=== PATIENT | male | born 1950 | race Caucasian/White ===

== ENCOUNTER 2017-03-19 06:03 | Day surgery (SDC) | payer MEDICARE, OTHER ==
[2017-03-19] VITALS (8 sets, daily range): BP systolic 109–151; BP diastolic 57–95; PULSE 69–87; RESP 16–20; TEMP 97.6–97.7; O2SAT 93–97
[~2017-03-19] VITALS: Ht 185.4 cm; Wt 85.0 kg
[2017-03-19] MEDS ORDERED: SODIUM CHLOR 0.9% 1000 ML IV SCH (07:00)
[2017-03-19] MEDS ORDERED: MIDAZOLAM HCL 2 MG/2 ML VIAL ONE (07:43)
[2017-03-19] MEDS ORDERED: LIDOCAINE 1%/EPINEPHrine 1:100,000 SOLN 20 ML VIAL ONE (07:49)
--- NOTE | 2017-03-19 10:01 | RADRPT ---
EXAM DATE/TIME: 03/19/2017 08:00 [place] COMPARISON: No previous studies available for comparison. INDICATIONS : No history of prior malignancies with newly diagnosed hepatic mass. SEDATION TIME: 30 minutes BIOPSY SITE: liver MEDICATION(S): 1.) 2 mg midazolam (Versed) IV 2.) 100 mcg fentanyl (Sublimaze) IV DEVICE(S): 1.) 18 gauge Dominguez blunt needle 2.) 20 gauge Temno core biopsy needle MEDICAL HISTORY : Hypertension. SURGICAL HISTORY : None. ENCOUNTER: Initial ACUITY: 1 day PAIN SCORE: 0/10 LOCATION: upper quadrant A total of ? core specimen(s) were obtained and sent to the laboratory for pathologic evaluation. PROCEDURE: 1. CT guided liver biopsy. 2. Conscious sedation with continuous EKG and oximetry monitoring. 3. EKG and oximetry remained stable throughout the procedure. Prior to the procedure informed consent was obtained. Any appropriate prior imaging studies were rev iewed. Using automated exposure control and adjustment of the mA and/or kV according to patient size, radiat ion dose was kept as low as reasonably achievable to obtain optimal diagnostic quality images. DICOM format image data is available electronically for review and comparison. The site was prepped in a sterile fashion. Full sterile technique was used, including cap, mask, jorge rile gloves and gown and a large sterile sheet. Hand hygiene and 2% chlorhexidine and/or betadine/al cohol prep was utilized per protocol for cutaneous antisepsis. The skin and subcutaneous tissues wer e infiltrated with local anesthetic solution. With CT guidance the previously identified target was localized. Biopsy was performed using the presc ribed needle as above. In total, 4 core biopsies were obtained. Adequate hemostasis was obtained with compression at the puncture site. Follow-up CT scan reveals no hemorrhage. The patient tolerated the procedure well and there were no complications. The patient was returned to the Radiology Outpatient Unit in stable condition. CONCLUSION: Uncomplicated CT guided biopsy of Mass in segment 5 of the liver.. Avery Trevino MD on March 19, 2017 at 9:58 Board Certified Radiologist. This report was verified electronically.
== END 2017-03-19 12:25 | disposition home or self-care (01) ==
LOC: HRAD 06:03 → HRIP 06:03 → HRAD 12:25
DX: D18.03 Hemangioma of intra-abdominal structures (principal); I10 Essential (primary) hypertension
CPT/HCPCS: 47000; 77012; 88307; J2250; J3010; J7030